=== PATIENT | female | born 1960 | race Caucasian/White ===

== ENCOUNTER 2019-09-07 15:28 | Outpatient (CLI) | payer OTHER, SELFPAY ==
--- NOTE | 2019-09-07 14:08 | DI.RAD_ITS ---
EXAM: XR WRIST RT LIMITED CLINICAL HISTORY: R wrist injury TECHNIQUE: COMPARISON: XR WRIST MIN 3 VIEWS RT from 09/05/2019 FINDINGS: Two views were obtained. The wrist is in a splint. Previously described fracture of the distal rad ius shows no change in alignment in comparison with prior study of September 05.. IMPRESSION:
== END 2019-09-07 15:48 ==
PROVIDERS: PCP Registered Nurse; Visit Provider Physician Assistant
DX: S52.531A Colles' fracture of right radius, initial encounter for closed fracture (principal); S69.91XA Unspecified injury of right wrist, hand and finger(s), initial encounter
CPT/HCPCS: 73100

== ENCOUNTER 2019-09-09 08:17 | Day surgery (SDC) | payer OTHER, SELFPAY ==
--- NOTE | 2019-09-07 15:58 | DSU.FORM ---
09/07/2019 @ 1553 - Detailed message was left at only phone number provided in system -number provided on preoperative orders was incorrect. 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 No active medications were provided. Request was made for Pt to call to confirm. PG
[2019-09-09 08:40] VITALS: BP 122/65; PULSE 54; RESP 16; TEMP 36.4; O2SAT 100
[2019-09-09] MEDS: Lactated Ringers 1,000 ML 100 ML IV (09:00)
--- NOTE | 2019-09-09 11:15 | DI.RAD_ITS ---
EXAM: XR WRIST RT LIMITED CLINICAL HISTORY: right distal radius fracture ORIF TECHNIQUE: The exam was performed according to the usual protocol. COMPARISON: No exams were available for comparison FINDINGS: C-arm fluoroscopy was utilized by Dr. Rea during apparent closed reduction of fracture of the dista l radius. Hard copy shows the wrist in cast with nearly anatomic reduction of the fracture fragments. Fluoro time 18.1 seconds IMPRESSION:
[2019-09-09 11:24] VITALS: BP 124/70; PULSE 69; RESP 15; TEMP 36.7; O2SAT 97
[2019-09-09 11:29] VITALS: BP 123/66; PULSE 66; RESP 15; TEMP 36.7; O2SAT 99
[2019-09-09 11:34] VITALS: BP 123/63; PULSE 63; RESP 15; TEMP 36.7; O2SAT 98
[2019-09-09 11:39] VITALS: BP 125/71; PULSE 64; RESP 14; TEMP 36.7; O2SAT 98
--- NOTE | 2019-09-09 11:51 | PDOC.DSDIS_ITS ---
Discharge Plan Disposition Patient Disposition: HOME Condition: Stable Discharge Details Reason For Visit: Right Distal radius fx Attending Provider: Melchor Rea Primary Care Provider: Mary Freeman Home Meds and New Rx's Prescriptions: New aspirin [Adult Low Dose Aspirin] 81 mg tablet,delayed release (DR/EC) 81 mg PO DAILY 14 Days Qty: 14 RF: 0 naproxen 250 mg tablet 250 - 500 mg PO BID PRN (Reason: pain, moderate) Qty: 30 RF: 0 oxycodone 5 mg tablet 5 - 10 mg PO Q4H PRN (Reason: pain, severe) Qty: 9 RF: 0 Discontinued ibuprofen [Advil] 200 mg Tablet 600 mg PO Q6H PRNRF: 0 Discharge Instructions Additional Instructions: Surgery: Right distal radius closed reduction and casting Activity: Nonweightbearing in short arm cast at all times. Recommend elevation on pillows at the level of the heart or higher for the next few days to minimize swelling. Prescriptions: Aspirin 81 mg take 1 daily to prevent a blood clot for 2 weeks Naproxen 250 mg take 1-2 every 12 hours with a meal as needed for moderate pain Oxycodone 5 mg take 1-2 every 4-6 hours as needed for severe pain You may use [id number] Tylenol (acetaminophen) as needed for mild pain. These pain medications may be taken all at once or in different combinations as needed. Also, recommend Colace (docusate) as a stool softener as surgery and pain medicine cause constipation. Dressings: Leave cast in place until follow-up. Keep clean and dry at all times. Follow-up: 10-[address] Rea Please call the office during business hours with any questions or concerns. Let us know right away if you develop any redness, drainage, fevers, chest pain, or trouble breathing. Do not drink alcohol or drive for at least 24 hours after anesthesia. Referrals: Melchor Rea MD [ [facility] STAFF PHYSICIAN] - Discharge Orders Discharge Orders: Discharge Order (Routine); Ordered 09/09/19 Ordered By: Melchor Rea DS: Diagnosis Discharge Diagnosis (1) Distal radius fracture, right: Status: Acute
--- NOTE | 2019-09-09 11:53 | ROE_ITS ---
Date of service: 09/09/19 Time of Service: 11:53 Operative Note Operative Note DATE OF PROCEDURE: 09/09/19 PRE-OP DIAGNOSIS: Right extra-articular dorsally angulated distal radius fracture POST-OP DIAGNOSIS: same PROCEDURE: 1. Right distal radius closed reduction with manipulation under general anesthesia 2. Short arm casting 3. Bivalving of short arm cast SURGEON: Melchor Rea GLASS SCIENCE ENGINEER: Candelario Mcdermott ANESTHESIA: GETA ESTIMATED BLOOD LOSS: 0 TOURNIQUET TIME: 0 COMPLICATIONS: None Patient was transported to: PACU Patient's condition: stable Indications: Please see complete medical record for details. Procedure Description: The patient was taken to the operating room and transferred to the operating room table. Anesthesia was induced. All bony prominences were well-padded. The correct patient, procedure, and side of the procedure were all verified prior to beginning manipulation. The existing right short arm sugar tong splint was removed. With some early skin breakdown about the ulnar styloid and the medial epicondyle from the pre- existing plaster. All forearm compartments are soft. Preoperative x-rays confirmed a relatively aligned extra-articular distal radius fracture in the coronal plane however there was still approximately 15 to 20 degrees of dorsal angulation and complete lack of volar hook in the sagittal plane. Succinylcholine was administered. The arm was brought under my thigh with the elbow positioned at 90 degrees of flexion steady traction was applied to the fracture through ligamentotaxis through the hand. After the patient relaxed, the fracture was gently exaggerated and then reduced in one maneuver with steady pressure held by my thumb on the dorsal distal radius surface to confirm and maintain reduction. AP and lateral C arm fluoroscopy was brought in and used to confirm excellent reduction at the fracture site with caodaism of neutral vo lar tilt and the volar hook. The teaching assistant stabilized the extremity while I applied a appropriately padded and well molded short arm cast taking care to maintain reduction and mold the cast with an appropriate cast index. Final AP and lateral fluoroscopy in the cast confirmed nearly anatomic alignment at the fracture site. The cast saw was used to bivalve the cast along the complete radial and ulnar sides and the sides spread apart gently to confirm the cast could expand if needed to accommodate for swelling. The bivalved cast edges were brought back together and secured with tape proximally distally and in the middle. The patient woke from anesthesia without complication was transferred to recovery room in stable condition.
[2019-09-09 12:35] VITALS: BP 124/65; PULSE 65; RESP 16; TEMP 36.2; O2SAT 98
== END 2019-09-09 13:00 | disposition home or self-care (01) ==
PROVIDERS: PCP Registered Nurse; Visit Provider Student in an Organized Health Care Education/Training Program
PROC: (CPT 25605; principal; 2019-09-09 11:00)
DX: S52.551A Other extraarticular fracture of lower end of right radius, initial encounter for closed fracture (principal); W00.0XXA Fall on same level due to ice and snow, initial encounter; Y93.21 Activity, ice skating
CPT/HCPCS: 25605; 73100; J1100; J1885; J2001; J2405; J2704

== ENCOUNTER 2019-09-22 11:56 | Outpatient (CLI) | payer OTHER, SELFPAY ==
--- NOTE | 2019-09-22 10:01 | DI.RAD_ITS ---
EXAM: XR WRIST RT COMPLETE INDICATION: F/U First post op. COMPARISON: XR WRIST MIN 3 VIEWS RT from 09/05/2019 XR WRIST RT LIMITED from 09/07/2019 TECHNIQUE: 2D digital imaging was performed. FINDINGS: The patient's wrist is in a cast. This does obscure the underlying bony detail. There is no signifi cant change in alignment of the distal radial fracture.
== END 2019-09-22 12:16 ==
PROVIDERS: PCP Registered Nurse; Visit Provider Student in an Organized Health Care Education/Training Program
DX: S52.551D Other extraarticular fracture of lower end of right radius, subsequent encounter for closed fracture with routine healing (principal)
CPT/HCPCS: 73110

== ENCOUNTER 2019-10-12 11:09 | Outpatient (CLI) | payer OTHER, SELFPAY ==
--- NOTE | 2019-10-12 11:20 | DI.RAD_ITS ---
EXAM: XR WRIST RT LIMITED INDICATION: F/U. COMPARISON: XR WRIST MIN 3 VIEWS RT from 09/05/2019 XR WRIST RT COMPLETE from 09/22/2019 TECHNIQUE: 2D digital imaging was performed. FINDINGS: There is no change in alignment of the distal radial fracture. The fracture does show evidence of he aling. IMPRESSION:
== END 2019-10-12 11:29 ==
PROVIDERS: PCP Registered Nurse; Visit Provider Student in an Organized Health Care Education/Training Program
DX: S52.551D Other extraarticular fracture of lower end of right radius, subsequent encounter for closed fracture with routine healing (principal)
CPT/HCPCS: 73100

== ENCOUNTER 2019-11-16 15:30 | Outpatient (CLI) | payer OTHER, SELFPAY ==
--- NOTE | 2019-11-16 14:00 | DI.RAD_ITS ---
EXAM: XR WRIST RT LIMITED CLINICAL HISTORY: FOLLOW UP. TECHNIQUE: 2D digital imaging was performed. COMPARISON: XR WRIST MIN 3 VIEWS RT from 09/05/2019 XR WRIST RT LIMITED from 10/12/2019 FINDINGS: BONES: There has been continued healing of the distal right radial fracture. No change in alignment of the fracture is noted. There is a stable ulnar styloid process fracture. JOINTS: There are degenerative changes seen at the 1st carpometacarpal joint. SOFT TISSUE: Normal. IMPRESSION: Stable healing distal right radial fracture. DATA REPOSITORY: RADIATION DOSE DELIVERED:
== END 2019-11-16 15:50 ==
PROVIDERS: PCP Registered Nurse; Visit Provider Student in an Organized Health Care Education/Training Program
DX: S52.551D Other extraarticular fracture of lower end of right radius, subsequent encounter for closed fracture with routine healing (principal)
CPT/HCPCS: 73100